=== PATIENT | female | born 1980 | race Caucasian/White ===

== ENCOUNTER 2023-08-19 10:15 | Emergency (ER) | payer OTHER ==
[2023-08-19 10:47] VITALS: O2SAT 100
--- NOTE | 2023-08-19 12:34 | ED Physician Documentation ---
PD HPI NVD - Stated complaint Stated Complaint: SOA/DIZZY/NAUSEA - Chief complaint Chief Complaint: General - History obtained from History obtained from: Patient - History of Present Illness Timing - onset: How many hours ago (2) Timing - duration: Hours Timing - details: Gradual onset, Still present (decreasing a lot) Associated symptoms: Dizzy (lightheaded, with general headache and nausea without vomiting.). No: Near syncope / syncope Contributing factors: Other ([place] The cabin was cooler this morning so they turned on propane heater (vented and intended indoors). Father and child outdoors, daughter in back bedroom. Pt was in living room around the heater and developed above symptoms. CO alarm sounded.). No: Sick contact Improved by: Other (pt feeling slowly better out of the cabin and enroute here.) Similar symptoms before: Has not had sx before (no history of migraines.) Review of Systems Constitutional: denies: Fever, Chills Nose: denies: Rhinorrhea / runny nose, Congestion Throat: denies: Sore throat Respiratory: denies: Cough PD PAST MEDICAL HISTORY - Past Medical History Past Medical History: Yes Cardiovascular: None Respiratory: None Neuro: None Endocrine/Autoimmune: None GI: Crohn's disease ON SITE COORDINATOR: None : None HEENT: None Psych: Depression, Anxiety, Eating disorder Musculoskeletal: None Derm: None - Past Surgical History Past Surgical History: No - Allergies Allergies/Adverse Reactions: Allergies Allergy/AdvReac Type Severity Reaction Status Date / Time No Known Drug Allergies Allergy Verified 08/19/23 10:34 - Social History Does the pt smoke?: No Smoking Status: Never smoker Does the pt drink ETOH?: No Does the pt have substance abuse?: No - Immunizations Immunizations are current?: Yes PD ED PE NORMAL - Vitals Vital signs reviewed: Yes (good sats) - General General: Alert and oriented X 3, No acute distress, Well developed/nourished - Neck Neck: Supple, no meningeal sign, No adenopathy - Cardiac Cardiac: RRR, No murmur - Respiratory Respiratory: Clear bilaterally - Derm Derm: Normal color, Warm and dry, No rash - Neuro Neuro: Alert and oriented X 3, No motor deficit, Normal speech Results - Vitals Vitals: Vital Signs - 24 hr 08/19/23 08/19/23 08/19/23 10:34 12:25 14:00 Temperature 36.6 C Heart Rate 57 L 57 L 58 L Respiratory 18 16 16 Rate Blood Pressure 130/82 H 132/81 H 117/78 O2 Saturation 100 100 100 Oxygen O2 Source Room air - Labs Labs: Laboratory Tests 08/19/23 13:30 VBG Total Hgb 13.5 VBG Oxyhemoglobin 43 L VBG Carboxyhemoglobin 2.9 H VBG Methemoglobin 0.1 PD Medical Decision Making - ED course Complexity details: reviewed results (Pt had been out of the cabin for couple of hours now with diminishing symptoms. Did get CO level as I felt it appropriate to ensure not still at high level, even if not getting peak level now. ), considered differential (CO exposure from propane indoor heater. Had not been u sed since last year. CO alarm sounded after pt noting above symptoms. They turned off heater and exited house. Rest of family without symptoms. ), d/w patient Reviewed Lab Results: her CO level is 2.9. Obviously would have been higher earlier during the exposure, given her symptoms, which typically occur at around 10-15 level but could be higher. Given down to 2.9 now, I do not think it was excessively high earlier and would not see indication for prlonged high flow nor hyperbaric. Departure - Departure Disposition: 01 Home, Self Care Clinical Impression: Headache, Nausea, Accidental exposure to carbon monoxide Condition: Stable Record reviewed to determine appropriate education?: Yes Instructions: ED CO Poisoning Comments: Your carboxyhemoglobin (CO level) is minimally elevated at this time. Given the carbon oxide monitor alarm along with your symptoms of headache and nausea, there is no doubt the level was higher earlier at the time of the exposure. However it is low enough at this point to presume it was not highly elevated then. The level right now is 2.9 with normal being up to 1.5. Typically the symptoms you have start in at a level around 10. More concerning for persistent toxicity is if the levels are over 15, 20, 25 for example. I would not anticipate it was that high based on the current blood test. Tylenol or ibuprofen if needed through the day today. Be sure the carbon oxide is cleared from your cabin before being back in it and of course have your propane stove vent etc. repaired for leakage. I would anticipate symptoms improving over the next day or so. Forms: PCP List Discharge Date/Time: 08/19/23 14:15
[2023-08-19] MEDS: ONDANSETRON ODT 4 MG TABLET TL STA (13:10)
[2023-08-19 13:44] LABS: CARBOXYHEMOGLOBIN VENOUS 2.9 % (0-1.5); HEMOGLOBIN TOTAL, VENOUS WB 13.5 g/dL (12.0-18.0)
[2023-08-19 13:45] LABS: METHEMOGLOBIN VENOUS 0.1 % (0-1.5)
[2023-08-19 14:16] VITALS: BP 117/78
== END 2023-08-19 14:15 | disposition home or self-care (01) ==
LOC: ED 10:15
DX: T58.91XA Toxic effect of carbon monoxide from unspecified source, accidental (unintentional), initial encounter (principal); R51.9 Headache, unspecified; R11.0 Nausea
CPT/HCPCS: 82375; 99283; Q0162